=== PATIENT | female | born 1985 | race Caucasian/White ===

== ENCOUNTER 2016-09-07 00:21 | Emergency (ER) | payer OTHER ==
[~2016-09-07 00:21] MED LIST: CHERATUSSIN AC118 M1 PO; MOTRIN800 MG PO; NO HOME MEDICATION XX; NYQUIL D COLD295 M1 PO; PERCOCET 5/3251 TAB PO; PRENATAL1 EACH PO; VENTOLIN HFA18 G2 PO; ZITHROMAX250MG Z-PAK PO
[2016-09-07] MEDS ORDERED: CODEINE-GUAIFE120 M1 PO ×2 (06:09→06:11)
[2016-09-07] MEDS ORDERED: ZITHROMAX TRI-500 M1 PO ×2 (06:09→06:11)
== END 2016-09-07 01:50 | disposition left against medical advice (07) ==
LOC: EDMED 00:21
DX: Z53.21 Procedure and treatment not carried out due to patient leaving prior to being seen by health care provider (principal)

== ENCOUNTER 2016-09-07 03:18 | Emergency (ER) | payer OTHER ==
[2016-09-07] MEDS ORDERED: CODEINE-GUAIFE120 M1 PO ×2 (06:09→06:11)
[2016-09-07] MEDS ORDERED: ZITHROMAX TRI-500 M1 PO ×2 (06:09→06:11)
== END 2016-09-07 06:19 ==
LOC: EDMED 03:18
DX: J40 Bronchitis, not specified as acute or chronic (principal); F17.200 Nicotine dependence, unspecified, uncomplicated; Z98.51 Tubal ligation status